=== PATIENT | female | born 1995 | race Caucasian/White ===

== ENCOUNTER 2016-07-08 05:35 | Emergency (ER) | payer OTHER ==
--- NOTE | 2016-07-08 08:08 | ED CLINICAL REPORT ---
Clinical Report - Physicians/Mid Levels [facility] [address] [place] [address] 07/08/2016 5:35 Patient: JENNA ROUSSEAU Time Seen: 05:56. Arrived- By private vehicle. Historian- patient. HISTORY OF PRESENT ILLNESS Chief Complaint: VOMITING. This started several days ago and is still present. It has been intermittent and waxing/waning. No recent travel. She has had nausea, severe vomiting. The vomiting has occurred numerous times and has been blood-tinged and mild, crampy, intermittent abdominal pain. No diarrhea, black stools, bloody stools or known contact with a sick individual. Has not recently been camping. Has recently been on antibiotics for ENT problems (for 2 days - this was started for an L ear infection). The illness is described as severe. Recent medical care: The patient was seen recently at another facility in a clinic. Seen for similar symptoms and other problems. Diagnosis: unknown (ear infection). REVIEW OF SYSTEMS Last normal menstrual period was 3 weeks ago. No chills, fever, sweats, calf pain or chest pain. No difficulty breathing, pedal edema, palpitations or urinary problems. She has had muscle aches. She has had a nonproductive cough (for several days). All systems otherwise negative, except as recorded above. PAST HISTORY Problems: Abdominal Pain. Contusion. Bronchitis. UTI - Urinary Tract Infection. Additional Surgeries: Adenoidectomy. Tonsillectomy. Medications: Amoxicillin Oral. Ondansetron Oral. Allergies: Sulfa Antibiotics. SOCIAL HISTORY Current every day light tobacco smoker (cigarette)- less than 1/2 a pack per day. History of occasional drug use: marijuana. No alcohol use. FAMILY HISTORY Denies family medical history. ADDITIONAL NOTES The nursing notes have been reviewed. PHYSICAL EXAM Vital Signs: 07/08/2016 05:41 BP: 97/47. HR: 95. RR: 18. O2 saturation: 99%. Temp: 99.4 F. Have been reviewed. Appearance: Alert. Eyes: Pupils equal, round and reactive to light. ENT: Pharynx normal. Neck: Normal inspection. Neck supple. CVS: Normal heart rate and rhythm. Heart sounds normal. Respiratory: No respiratory distress. Breath sounds normal. Abdomen: Soft and nontender. Abnormal bowel sounds: hyperactive. No organomegaly. No mass. Back: Normal inspection. Skin: Skin warm and dry. Normal skin color. Normal skin turgor. Extremities: Extremities exhibit normal ROM. No calf tenderness. No lower extremity edema. LABS, X-RAYS, AND EKG Laboratory Tests: UA-Culture if indicated: (ODILON: 07/08/2016 05:50) ( [facility] 07/08/2016 06:15) Final results Test Result Flag Units (Reference) URINE COLOR YELLOW URINE APPEARANCE CLEAR URINE GLUCOSE NEGATIVE (NEGATIVE) URINE BILIRUBIN 2+ (NEGATIVE) URINE KETONE 3+ (NEGATIVE) URINE SPECIFIC GRAVITY 1.025 (1.010-1.030) URINE PH 6.0 (5.0-8.0) URINE PROTEIN 1+ (NEGATIVE) URINE UROBILINOGEN 1.0 EU/dL (0.2-1.0) URINE NITRITE NEGATIVE (NEGATIVE) URINE BLOOD 1+ (NEGATIVE) URINE LEUK ESTERASE NEGATIVE (NEGATIVE) URINE RBC 1-3 rbc/hpf (0-1) URINE WBC 1-3 wbc/hpf (0-1) URINE EPITHELIAL CELLS 5-10 EPI/hpf (0-5) FEW TRANSITIONAL EPITHELIAL CELLS PRESENT URINE BACTERIA MODERATE (2+ TO 3+) (NONE SEEN) URINE COMMENT CULTURE INDICATED URINE CULTURES ARE SET-UP BASED ON THE FOLLOWING CRITERIA:POSITIVE NITRITEPOSITIVE LEUKOCYTE ESTERASEGREATER THAN 10 WHITE BLOOD CELLSMODERATE (2+) OR GREATER BACTERIA Urine: (ODILON: 07/08/2016 05:50) ( [facility] 07/08/2016 06:11) Final results Test Result Flag Units (Reference) URINE NEGATIVE CBC w Diff: (ODILON: 07/08/2016 05:50) ( [facility] 07/08[facility]2016 06:10) Final results Test Result Flag Units (Reference) WHITE BLOOD COUNT 8.4 K/uL (4.5-11.5) RED BLOOD COUNT 5.11 M/uL (4.00-5.20) HEMOGLOBIN 14.9 gm/dL (12.0-16.0) HEMATOCRIT 45.4 % (36.0-46.0) MEAN CELL VOLUME 89 fL (80-100) MEAN CORPUSCULAR HGB 29 pg (26-34) MEAN CORPUSCULAR HGB CONC 33 g/dL (31-37) RED CELL DISTRIBUTION WIDTH 13.6 % (11.6-14.8) PLATELET COUNT 201 K/uL (150-400) NEUTROPHIL % 77.6 H % (50-75) LYMPH % 9.6 L % (25-40) MONO % 12.7 % (3-14) EOSINOPHIL % 0 % (0-4) BASOPHIL % 0.1 % (0-2) PT with INR: (ODILON: 07/08/2016 05:50) ( [facility] 07/08/2016 06:16) Final results Test Result Flag Units (Reference) INR 1.0 (0.8-1.2) Low Intensity Therapy: INR 1.5-2.0 PT range 18.5-23.1Mod.Intensity Therapy: INR 2.0-3.0 PT range 23.1-31.5High Intensity Therapy: INR 2.5-3.5 PT range 27.4-35.5High Intensity Therapy 2: INR 3.0-4.0 PT range 31.5-39.3 CMP: (ODILON: 07/08/2016 05:50) ( [facility] 07/08/2016 06:19) Final results Test Result Flag Units (Reference) GLUCOSE 102 mg/dL (70-110) BUN 16 mg/dL (7-18) CREATININE 0.7 mg/dL (0.6-1.3) Estimated GFR >60 mL/min Estimated GFR- >60 mL/min Note: Persistent reduction over 3 months in eGFR<60 mL/min/1.73 m2 defines CKD. Patients with eGFR values>=60 mL/min/1.73 m2 may also have CKD if evidence ofpersistent proteinuria. Additional information may be foundat www.kidney.org. SODIUM 137 mmol/L (136-145) POTASSIUM 3.5 mmol/L (3.5-5.1) CHLORIDE 98 mmol/L (98-107) CARBON DIOXIDE 27 mmol/L (21-32) CALCIUM 9.1 mg/dL (8.5-10.1) TOTAL PROTEIN 8.2 g/dL (6.4-8.2) ALBUMIN 4.2 g/dL (3.3-5.0) BILIRUBIN, TOTAL 0.3 mg/dL (0.0-1.0) ALKALINE PHOSPHATASE 77 U/L (46-116) AST (SGOT) 24 U/L (15-37) ALT (SGPT) 20 U/L (12-78) LIPASE 106 U/L (73-393) AMYLASE 34 U/L (25-115) . PROGRESS AND PROCEDURES Course of Care: Symptoms better. Vital signs have been reviewed. Alert. No acute distress. Breath sounds normal. No respiratory distress. Normal heart rate and rhythm. Heart sounds normal. Abdomen soft and nontender. Skin warm and dry. Patient/family counseled. Old medical records reviewed. Disposition: Discharged. Condition: stable. CLINICAL IMPRESSION Vomiting. Mild dehydration INSTRUCTIONS No driving or operating machinery while taking medication. Sedative medication was given during your visit. Drink plenty of fluids. Warnings: Further evaluation is necessary. GENERAL WARNINGS: Return or contact your physician immediately if your condition worsens or changes unexpectedly, if not improving as expected, or if other problems arise. Your Current Medications: STOP TAKING THE FOLLOWING MEDICATIONS: Amoxicillin Oral. CONTINUE TAKING THE FOLLOWING MEDICATIONS: Ondansetron Oral. Prescription Medications: Phenergan suppositories 25 mg: Insert 1 rectally every 4 to 6 hours as needed for nausea or vomiting. Dispense ten (10). No refills. Substitution is permissible. Follow-up: Follow up with your doctor Tuesday in four days. Call for an appointment. Understanding of the discharge instructions verbalized by patient and parent. (Electronically signed by Dragan Lazo MD 07/09/2016 3:20)
--- NOTE | 2016-07-08 08:08 | ED NURSING NOTES ---
Clinical Report - Nurses [facility] [address] [place] [address] 07/08/2016 5:35 [id number] Triage time 05:42 Jul 08 2016. Acuity: LEVEL 3. Chief Complaint: ABDOMINAL PAIN, NAUSEA and VOMITING. MARILUZ COMA SCORE: Mariluz Coma Scale: 15- eyes open spontaneously (4); best verbal response- oriented x 4 (5); best motor response- obeys commands (6). --05:48 Samir Man R.N. 05:41 07/08/16. BP: 97/47. HR: 95. RR: 18. O2 saturation: 99%. Temp: 99.4 F. Pain level now 0/10. --05:48 Samir Man R.N. Weight: 43 kg stated. Height/Length: 60 inches Per Patient. BMI: 18.5. --05:48 Samir Man R.N. Medications Ondansetron Oral. --05:44 Samir Man R.N. Amoxicillin Oral. --05:44 Samir Man R.N. Allergies Sulfa Antibiotics. --05:43 Samir Man R.N. History Arrived by private vehicle. Historian: patient. Accompanied by family. Onset. (3 days). She has had nausea, vomiting, diarrhea and abdominal pain. No constipation or fever. Last oral intake by patient was liquid last night. PAST MEDICAL HX: Immunizations: status is unknown. Last normal menstrual period- last month sometime. SOCIAL HX: Current every day light tobacco smoker (cigarette)- less than 1/2 a pack per day. History of occasional drug use: marijuana. No alcohol use. No known contact with a sick individual. SELF HARM ASSESSMENT: A self harm assessment was performed. The patient answered "yes" to the question "Have you recently felt down, depressed, or hopeless?" and "no" to the question "Do you have thoughts of harming or killing yourself?". FALL RISK ASSESSMENT: Fall risk assessment completed. No fall risk identified. NUTRITIONAL RISK ASSESSMENT: The nutritional risk assessment revealed no deficiencies. FUNCTIONAL ASSESSMENT: Functional assessment: no impairments noted. LEARNING NEEDS ASSESSMENT: The learning needs assessment revealed no barriers. ABUSE ASSESSMENT: Abuse assessment: (yes) The patient was asked "Do you feel safe in your home?". SKIN INTEGRITY ASSESSMENT: Skin integrity risk assessment completed. No skin integrity risk identified. --05:48 Samir Man R.N. PROBLEMS: Abdominal Pain. Contusion. Bronchitis. UTI - Urinary Tract Infection. --05:44 Samir Man R.N. ADDITIONAL SURGERIES: Adenoidectomy. Tonsillectomy. --05:44 Samir Man R.N. Interventions ID and allergy band on patient. --05:48 Samir Man R.N. PHYSICAL ASSESSMENT Ambulatory to room. GENERAL / NEURO / PSYCH: Alert. Oriented X 4. Appears in distress. HEENT: Mucous membranes are pink. RESPIRATORY: Respirations not labored. Breath sounds within normal limits. ( Has a cough for 3 days.). CVS: Normal sinus rhythm noted. Capillary refill less than 2 seconds. GI / : The patient has had nausea and diarrhea. Emesis noted. Abdomen soft and nontender. Bowel sounds within normal limits. SKIN: Skin is warm and dry. --05:49 Samir Man R.N. NURSING PROGRESS NOTES The initial plan of care for this patient includes an assessment with efforts to address the patient's anxiety; patient positioning, appropriate ambient lighting and comfortable environmental temperature; impairment of the gastrointestinal system. Pulse oximeter and NIBP monitor placed on patient. Head of bed elevated (90). Reassurance given. Call light placed in reach. Side rails up x 1. Bed placed in lowest position. Brakes of bed on. --05:50 Samir Man R.N. 05:58 07/08/2016 Site #1 started via IV in the left antecubital space with an 20g angiocath, with aseptic technique and good blood return; one attempt. Blood drawn: rainbow set. Labeled in the presence of the patient and sent to the lab. Saline lock flushed with 10 mL saline. --05:58 Samir Man R.N. 06:07/08/2016 Started bag #1 1000 mL IV Fluids IV NS (Saline); at 1000 mL/hr over 1 hour(s) via site #1 via dial-a-flow. Allergies verified and confirmed 5 rights. IV patency established. IV site checked: no pain, redness, or swelling. IV flushed thoroughly pre- and post-medication administration. --06:01 Samir Man R.N. 06:01 07/08/2016 Zofran (Ondansetron HCl) IVP 4 mg given over 2 minute(s) via site #1. Allergies verified and confirmed 5 rights. IV patency established. IV site checked: no pain, redness, or swelling. IV flushed thoroughly pre- and post-medication administration. --06:01 Samir Man R.N. 07:04 07/08/2016 PHENERGAN (Promethazine HCl) IVP 25 mg given over 2 minute(s) via site #1. Allergies verified and confirmed 5 rights. --07:04 Shyanne Mon R.N. 07:05 07/08/16. ( IVF's barely infusing, so placed on pump at 999mls/hr after Phenergan given). --07:05 Shyanne Mon R.N. 07:36 07/08/16. ( Special teaching done for possible causes of pt's nausea, including hazards of smoking cigarettes and marijuana, and clear liquids diet reviewed, that pt needs to take sips when she goes home, and need for rest and medications.). --07:36 Shyanne Mon R.N. DISPOSITION / DISCHARGE Departure time: 743. Condition at departure: improved. No learning barriers present. Discharge instructions provided and reviewed. Reviewed medication(s) information. Prescription(s) given to the parent. Reviewed referral to family practice for followup. Verbalized understanding. Written instructions provided. The patient was discharged home and accompanied by family. She left the Emergency Department ambulatory and via private vehicle. Family member driving. --08:07 Shyanne Mon R.N. 07:44 07/08/16. BP: 98/68. HR: 87. RR: 18. O2 saturation: 95%. Pain level now: 0/10. --08:07 Syhanne Mon R.N. Locked/Released at 07/09/2016 10:26 by Shyanne Mon R.N.
--- NOTE | 2016-07-08 08:08 | ED ORDER SUMMARY ---
..... Patient: JENNA ROUSSEAU OrderSheet [facility] VisitID: [id number] [place] [address] 21y, F Registration Date/Time: 07/08/2016 ORDER SHEET Weight: 43.0 kg (stated) Allergies: Sulfa Antibiotics GENERAL ORDERS: CBC w Diff Urgent (06:00 07/08/2016 LWhalen R.N. per protocol) (Ack 6:02 CHategekimana) (6:06 RCollier R.N.) CMP Urgent (06:00 07/08/2016 LWhalen R.N. per protocol) (Ack 6:02 CHategekimana) (6:06 RCollier R.N.) UA-Culture if indicated Urgent (:07/08/2016 LWhalen R.N. per protocol) (Ack 6:02 CHategekimana) (6:06 RCollier R.N.) PT with INR Urgent (06:00 07/08/2016 LWhalen R.N. per protocol) (Ack 6:02 CHategekimana) (6:06 RCollier R.N.) Amylase Urgent (06:00 07/08/2016 LWhalen R.N. per protocol) (Ack 6:02 CHategekimana) (6:07 RCollier R.N.) Lipase Urgent (06:00 07/08/2016 LWhalen R.N. per protocol) (Ack 6:02 CHategekimana) (6:07 RCollier R.N.) Urine Urgent (06:00 07/08/2016 LWhalen R.N. per protocol) (Ack 6:02 CHategekimana) (6:07 RCollier R.N.) Vitals (06:00 07/08/2016 LWhalen R.N. per protocol) (6:01 LWhalen R.N.) Pulse oximeter (06:07/08/2016 LWhalen R.N. per protocol) (6:01 LWhalen R.N.) MEDICATION ORDERS: Phenergan IV 25 mg (HIGH ALERT MEDICATION, NOW) (07:00 07/08/2016 Alfredo CASAS) (7:04 Orestes R.N.) IV FLUIDS: IV NS : initial bolus 1000 mL (1000 mL/hr), then 1000 mL/hr for X1 (NOW) (06:00 07/08/2016 LWhalen R.N. per protocol) (6:01 LWhalen R.N.) Zofran IV 4 mg (NOW) (06:07/08/2016 LWhalen R.N. per protocol) (6:01 LWhalen R.N.) ORDER SHEET NOTES: [Electronically signed by Dragan Lazo MD (03:20 07/09/2016)] [Electronically signed by Shyanne Mon R.N. (:07/09/2016)] [Electronically locked/signed by Shyanne Mon R.N. (07/09/2016)]
--- NOTE | 2016-07-08 08:08 | ED ORDER SUMMARY ---
..... Patient: JENNA ROUSSEAU OrderSheet [facility] VisitID: [id number] [place] [address] 21y, F Registration Date/Time: 07/08/2016 ORDER SHEET Weight: 43.0 kg (stated) Allergies: Sulfa Antibiotics GENERAL ORDERS: CBC w Diff Urgent (06:00 07/08/2016 LWhalen R.N. per protocol) (Ack 6:02 CHategekimana) (6:06 RCollier R.N.) CMP Urgent (06:00 07/08/2016 LWhalen R.N. per protocol) (Ack 6:02 CHategekimana) (6:06 RCollier R.N.) UA-Culture if indicated Urgent (:07/08/2016 LWhalen R.N. per protocol) (Ack 6:02 CHategekimana) (6:06 RCollier R.N.) PT with INR Urgent (06:00 07/08/2016 LWhalen R.N. per protocol) (Ack 6:02 CHategekimana) (6:06 RCollier R.N.) Amylase Urgent (06:00 07/08/2016 LWhalen R.N. per protocol) (Ack 6:02 CHategekimana) (6:07 RCollier R.N.) Lipase Urgent (06:00 07/08/2016 LWhalen R.N. per protocol) (Ack 6:02 CHategekimana) (6:07 RCollier R.N.) Urine Urgent (06:00 07/08/2016 LWhalen R.N. per protocol) (Ack 6:02 CHategekimana) (6:07 RCollier R.N.) Vitals (06:00 07/08/2016 LWhalen R.N. per protocol) (6:01 LWhalen R.N.) Pulse oximeter (06:07/08/2016 LWhalen R.N. per protocol) (6:01 LWhalen R.N.) MEDICATION ORDERS: Phenergan IV 25 mg (HIGH ALERT MEDICATION, NOW) (07:00 07/08/2016 Alfredo CASAS) (7:04 Orestes R.N.) IV FLUIDS: IV NS : initial bolus 1000 mL (1000 mL/hr), then 1000 mL/hr for X1 (NOW) (06:00 07/08/2016 LWhalen R.N. per protocol) (6:01 LWhalen R.N.) Zofran IV 4 mg (NOW) (06:07/08/2016 LWhalen R.N. per protocol) (6:01 LWhalen R.N.) ORDER SHEET NOTES: [Electronically signed by Dragan Lazo MD (03:20 07/09/2016)] [Electronically signed by Shyanne Mon R.N. (:07/09/2016)] [Electronically locked/signed by Shyanne Mon R.N. (07/09/2016)]
--- NOTE | 2016-07-09 10:26 | ED DISCHARGE INSTRUCTIONS ---
Patient: JENNA ROUSSEAU General Instructions [facility] VisitID: [id number] [address] [address] 21y, F Registration Date/Time: 07/08/2016 Vomiting. Mild dehydration INSTRUCTIONS No driving or operating machinery while taking medication. Sedative medication was given during your visit. Drink plenty of fluids. Warnings: Further evaluation is necessary. GENERAL WARNINGS: Return or contact your physician immediately if your condition worsens or changes unexpectedly, if not improving as expected, or if other problems arise. Your Current Medications: STOP TAKING THE FOLLOWING MEDICATIONS: Amoxicillin Oral. CONTINUE TAKING THE FOLLOWING MEDICATIONS: Ondansetron Oral. Prescription Medications: Phenergan suppositories 25 mg: Insert 1 rectally every 4 to 6 hours as needed for nausea or vomiting. Dispense ten (10). No refills. Substitution is permissible. Follow-up: Follow up with your doctor Tuesday in four days. Call for an appointment. Understanding of the discharge instructions verbalized by patient and parent. ADDITIONAL INFORMATION Vomiting [6Yr-Adult] Vomiting is a common symptom that may be due to different causes. These include gastroenteritis ("stomach flu"), food poisoning and gastritis. There are other more serious causes of vomiting which may be hard to diagnose early in the illness. Therefore, it is important to watch for the warning signs listed below. The main danger from repeated vomiting is dehydration. This is due to excess loss of water and minerals from the body. When this occurs, body fluids must be replaced. Home Care: If symptoms are severe, rest at home for the next 24 hours. You may use acetaminophen (Tylenol) or ibuprofen (Motrin, Advil) to control fever, unless another medicine was prescribed. [NOTE : If you have chronic liver or kidney disease or ever had a stomach ulcer or GI bleeding, talk with your doctor before using these medicines.] (Aspirin should never be used in anyone under 18 years of age who is ill with a fever. It may cause severe liver damage.) Avoid tobacco and alcohol use, which may worsen your symptoms. If medicines for vomiting were prescribed, take as directed. Once vomiting stops, then follow these guidelines: During The First 12-24 Hours follow the diet below: FRUIT JUICES: Apple, grape juice, clear fruit drinks, and electrolyte replacement drinks. BEVERAGES: Soft drinks without caffeine; mineral water (plain or flavored), decaffeinated tea and coffee. SOUPS: Clear broth, consomm and bouillon DESSERTS: Plain gelatin, popsicles and fruit juice bars. As you feel better, you may add 6-8 ounces of yogurt per day. During The Next 24 Hours you may add the following to the above: Hot cereal, plain toast, bread, rolls, crackers Plain noodles, rice, mashed potatoes, chicken noodle or rice soup Unsweetened canned fruit (avoid pineapple), bananas Limit caffeine and chocolate. No spices or seasonings except salt. During The Next 24 Hours Gradually resume a normal diet, as you feel better and your symptoms lessen. Follow Up with your doctor as advised if you are not improving over the next 2-3 days. Get Prompt Medical Attention if any of the following occur: Constant right-sided lower abdominal pain or increasing general abdominal pain Continued vomiting (unable to keep liquids down) for 24 hours Frequent diarrhea (more than 5 times a day); blood (red or black color) or mucus in diarrhea Reduced urine output or extreme thirst Weakness, dizziness or fainting Unusually drowsy or confused Fever of 100.4F (38C) oral or higher, not better with fever medication Yellow color of the eyes or skin Dehydration (Adult) Dehydration occurs when your body loses too much fluid. This may be the result of vomiting a lot or from diarrhea,sweating a lot, or a high fever. It may also happen if you dont drink enough fluid when youre sick. Misuse of diuretics (water pills) can also be a cause. Symptoms include thirst and feeling dizzy, weak, fatigued, or very drowsy. The diet described below is usually enough to treat most cases. Sometimes you may needmedicine. Home Care Follow these guidelines for home care: Drink at least 12 8-ounce glasses of fluid every day to overcome the dehydration. Fluid may include water; orange juice; lemonade; apple, grape, and cranberry juice; clear fruit drinks; electrolyte replacement and sports drinks; and teas and coffee without caffeine. If you have been diagnosed with a kidney disease, ask your doctor how much and what types of fluids you should drink to prevent dehydration. If you have kidney disease, drinking too much fluid can cause it build up in the your body and be dangerous to your health. If you have fever, muscle aching, or headache from a viral syndrome, you may useacetaminophen or ibuprofen, unless another medicine was prescribed for this.If you have chronic liver or kidney disease or ever had a stomach ulcer or GI bleeding, talk with your doctor before using these medicines. Don't take aspirin if you are younger than 18 and are ill with a fever.Aspirin raises the chance forsevere liver injury. Follow-up care Follow up with your health care provider if you don't get better in the next 24 to 48 hours. When to seek medical care Get prompt medical attention if any of theseoccur: Continued vomiting (cant keep liquids down) Frequent diarrhea (more than 5 times a day); blood (red or black color) or mucus in diarrhea Blood in vomit or stool Swollen abdomen or increasing abdominal pain Weakness, dizziness, or fainting Unusually drowsy or confused Reduced urine output or extreme thirst Fever of 100.4 F (38 C) oral or higher that does not get better with fever medication Promethazine Hydrochloride Rectal suppository What is this medicine? PROMETHAZINE (proe METH a zeen) is an antihistamine. It is used to treat allergic reactions and to treat or prevent nausea and vomiting from illness or motion sickness. It is also used to make you sleep before surgery, and to help treat pain or nausea after surgery. How should I use this medicine? This medicine is for rectal use only. Do not take by mouth. Wash your hands before and after use. Take off the foil wrapping. Wet the tip of the suppository with cold tap water to make it easier to use. Lie on your side with your lower leg straightened out and your upper leg bent forward toward your stomach. Lift upper buttock to expose the rectal area. Apply gentle pressure to insert the suppository completely into the rectum, pointed end first. Hold buttocks together for a few seconds. Remain lying down for about 15 minutes to avoid having the suppository come out. Do not use more often than directed. Talk to your crystal machining coordinator regarding the use of this medicine in children. Special care may be needed. This medicine should not be given to infants and children younger than 2 years old. What side effects may I notice from receiving this medicine? Side effects that you should report to your doctor or health child care specialist as soon as possible: blurred vision irregular heartbeat, palpitations or chest pain muscle or facial twitches pain or difficulty passing urine seizures skin rash slowed or shallow breathing unusual bleeding or bruising yellowing of the eyes or skin Side effects that usually do not require medical attention (report to your doctor or health child care specialist if they continue or are bothersome): headache nightmares, agitation, nervousness, excitability, not able to sleep (these are more likely in children) stuffy nose What may interact with this medicine? Do not take this medicine with any of the following medications: medicines called MAO Inhibitors like Nardil, Parnate, Marplan, Eldepryl other phenothiazines like trimethobenzamide This medicine may also interact with the following medications: barbiturates such as phenobarbital bromocriptine certain antidepressants certain antihistamines used in allergy or cold medicines epinephrine levodopa medicines for sleep medicines for mental problems and psychotic disturbances medicines for movement abnormalities as in Parkinson's disease, or for gastrointestinal problems muscle relaxants prescription pain medicines What if I miss a dose? If you miss a dose, use it as soon as you can. If it is almost time for your next dose, use only that dose. Do not use double doses. Where should I keep my medicine? Keep out of the reach of children. Store in a refrigerator between 2 and 8 degrees C (36 and 46 degrees F). Throw away any unused medicine after the expiration date. What should I tell my health care provider before I take this medicine? They need to know if you have any of these conditions: glaucoma high blood pressure or heart disease kidney disease liver disease lung or breathing disease, like asthma prostate trouble pain or difficulty passing urine seizures an unusual or allergic reaction to promethazine or phenothiazines, other medicines, foods, dyes, or preservatives or trying to get breast-feeding What should I watch for while using this medicine? Tell your doctor or health child care specialist if your symptoms do not start to get better in 1 to 2 days. You may get drowsy or dizzy. Do not drive, use machinery, or do anything that needs mental alertness until you know how this medicine affects you. To reduce the risk of dizzy or fainting spells, do not stand or sit up quickly, especially if you are an older patient. Alcohol may increase dizziness and drowsiness. Avoid alcoholic drinks. Your mouth may get dry. Chewing sugarless gum or sucking hard candy, and drinking plenty of water may help. Contact your doctor if the problem does not go away or is severe. This medicine may cause dry eyes and blurred vision. If you wear contact lenses you may feel some discomfort. Lubricating drops may help. See your eye doctor if the problem does not go away or is severe. This medicine can make you more sensitive to the sun. Keep out of the sun. If you cannot avoid being in the sun, wear protective clothing and use sunscreen. Do not use sun lamps or tanning beds/booths. If you are diabetic, check your blood-sugar levels regularly. You have been given the following additional information: Vomiting (6Y-Adult) Dehydration (Adult) Promethazine Hydrochloride Rectal suppository No driving or operating machinery while taking medication. Sedative medication was given during your visit. (Electronically signed by Dragan Lazo MD 07/09/2016 3:20)
--- NOTE | 2016-07-09 10:26 | ED MED RECONCILIATION SUMMARY ---
Patient: JENNA ROUSSEAU Medication Reconciliation Report [facility] VisitID: [id number] [place] [address] 21y, F Registration Date/Time: 07/08/2016 Weight: 43.0 kg Height/Length: 60 in. BMI: 18.5 ALLERGIES: Sulfa Antibiotics The patient's Home Medications are listed below: STOP TAKING THE FOLLOWING MEDICATIONS: Amoxicillin Oral CONTINUE TAKING THE FOLLOWING MEDICATIONS: Ondansetron Oral The source(s) of the original Home Medication information: Not obtained. The following Medications were given to the patient in the Emergency Department: IV NS IV Fluids bolus 0, then 1000 mL/hr, administered: 07/08/2016 6:01:00 AM Zofran [IVP] IVP 4 mg, administered: 07/08/2016 6:01:00 AM PHENERGAN [IVP] IVP 25 mg, administered: 07/08/2016 7:04:00 AM The following Medications were prescribed to the patient: Phenergan suppositories 25 mg: Insert 1 rectally every 4 to 6 hours as needed for nausea or vomiting. Dispense ten (10). No refills. Substitution is permissible. -- Dragan Lazo MD
--- NOTE | 2016-07-09 10:26 | ED MAR SUMMARY ---
..... Medication Administration Record [facility] [address] [place] [address] Patient: JENNA ROUSSEAU Visit ID: [id number] 21y, F Weight: 43.0 kg Height/Length: 60 in BMI: 18.5 ALLERGIES: Sulfa Antibiotics Start 06:01 07/08/2016 Samir Man R.N. Medication Administered: IV NS (SALINE), Dose: IV Fluids over 1 hour(s), Rate: 1000 mL/hr, Dispensed: 1000 mL bag, Site: #1 left AC. Medication Ordered: IV NS : initial bolus 1000 mL (1000 mL/hr), then 1000 mL/hr for X1 (NOW). Given 06:01 07/08/2016 Samir Man R.N. Medication Administered: ZOFRAN [IVP] (ONDANSETRON HCL), Dose: 4 mg IVP over 2 minute(s), Site: #1 left AC. Medication Ordered: Zofran IV 4 mg (NOW). Given 07:04 07/08/2016 Shyanne Mon R.N. Medication Administered: PHENERGAN [IVP] (PROMETHAZINE HCL), Dose: 25 mg IVP over 2 minute(s), Site: #1 left AC. Medication Ordered: Phenergan IV 25 mg (HIGH ALERT MEDICATION, NOW).
--- NOTE | 2016-07-09 10:26 | ED MAR SUMMARY ---
..... Medication Administration Record [facility] [address] [place] [address] Patient: JENNA ROUSSEAU Visit ID: [id number] 21y, F Weight: 43.0 kg Height/Length: 60 in BMI: 18.5 ALLERGIES: Sulfa Antibiotics Start 06:01 07/08/2016 Samir Man R.N. Medication Administered: IV NS (SALINE), Dose: IV Fluids over 1 hour(s), Rate: 1000 mL/hr, Dispensed: 1000 mL bag, Site: #1 left AC. Medication Ordered: IV NS : initial bolus 1000 mL (1000 mL/hr), then 1000 mL/hr for X1 (NOW). Given 06:01 07/08/2016 Samir Man R.N. Medication Administered: ZOFRAN [IVP] (ONDANSETRON HCL), Dose: 4 mg IVP over 2 minute(s), Site: #1 left AC. Medication Ordered: Zofran IV 4 mg (NOW). Given 07:04 07/08/2016 Shyanne Mon R.N. Medication Administered: PHENERGAN [IVP] (PROMETHAZINE HCL), Dose: 25 mg IVP over 2 minute(s), Site: #1 left AC. Medication Ordered: Phenergan IV 25 mg (HIGH ALERT MEDICATION, NOW).
--- NOTE | 2016-07-09 10:26 | ED MED RECONCILIATION SUMMARY ---
Patient: JENNA ROUSSEAU Medication Reconciliation Report [facility] VisitID: [id number] [place] [address] 21y, F Registration Date/Time: 07/08/2016 Weight: 43.0 kg Height/Length: 60 in. BMI: 18.5 ALLERGIES: Sulfa Antibiotics The patient's Home Medications are listed below: STOP TAKING THE FOLLOWING MEDICATIONS: Amoxicillin Oral CONTINUE TAKING THE FOLLOWING MEDICATIONS: Ondansetron Oral The source(s) of the original Home Medication information: Not obtained. The following Medications were given to the patient in the Emergency Department: IV NS IV Fluids bolus 0, then 1000 mL/hr, administered: 07/08/2016 6:01:00 AM Zofran [IVP] IVP 4 mg, administered: 07/08/2016 6:01:00 AM PHENERGAN [IVP] IVP 25 mg, administered: 07/08/2016 7:04:00 AM The following Medications were prescribed to the patient: Phenergan suppositories 25 mg: Insert 1 rectally every 4 to 6 hours as needed for nausea or vomiting. Dispense ten (10). No refills. Substitution is permissible. -- Dragan Lazo MD
== END 2016-07-08 07:44 | disposition home or self-care (01) ==
LOC: ED SRH 05:35
DX: R11.2 Nausea with vomiting, unspecified (principal); E86.0 Dehydration; F17.210 Nicotine dependence, cigarettes, uncomplicated; F12.10 Cannabis abuse, uncomplicated; Z88.2 Allergy status to sulfonamides; Z88.1 Allergy status to other antibiotic agents; Z88.8 Allergy status to other drugs, medicaments and biological substances
CPT/HCPCS: 90004; 90100; 90469; 92235; 92530; 93070; 94060; 95059